=== PATIENT | female | born 1990 | race Caucasian/White ===

== ENCOUNTER 2016-10-20 19:00 | Emergency (ER) | payer OTHER | END 2016-10-20 19:27 | disposition home or self-care (01) | LOC: ER 19:00 | DX: S46.911A Strain of unspecified muscle, fascia and tendon at shoulder and upper arm level, right arm, initial encounter (principal); Z87.440 Personal history of urinary (tract) infections; Z79.899 Other long term (current) drug therapy; Z88.1 Allergy status to other antibiotic agents; Z88.8 Allergy status to other drugs, medicaments and biological substances; W10.9XXA Fall (on) (from) unspecified stairs and steps, initial encounter ==

== ENCOUNTER 2016-11-13 08:10 | Emergency (ER) | payer OTHER | END 2016-11-13 11:08 | disposition home or self-care (01) | LOC: ER 08:10 | DX: R07.89 Other chest pain (principal); R51 Headache; M54.6 Pain in thoracic spine; R11.0 Nausea; R06.02 Shortness of breath; R05 Cough; R10.9 Unspecified abdominal pain; E05.90 Thyrotoxicosis, unspecified without thyrotoxic crisis or storm; Z87.442 Personal history of urinary calculi; Z87.440 Personal history of urinary (tract) infections; Z79.899 Other long term (current) drug therapy; Z88.1 Allergy status to other antibiotic agents; Z88.8 Allergy status to other drugs, medicaments and biological substances | CPT/HCPCS: 36415; 96361; 96374; 96375; J1200; J1885; J2765 ==

== ENCOUNTER 2016-12-05 09:28 | Emergency (ER) | payer OTHER | END 2016-12-05 10:49 | disposition home or self-care (01) | LOC: ER 09:28 | DX: R51 Headache (principal); F41.9 Anxiety disorder, unspecified; E05.90 Thyrotoxicosis, unspecified without thyrotoxic crisis or storm; Z87.442 Personal history of urinary calculi; Z87.440 Personal history of urinary (tract) infections; Z79.899 Other long term (current) drug therapy; Z88.1 Allergy status to other antibiotic agents; Z88.8 Allergy status to other drugs, medicaments and biological substances | CPT/HCPCS: 96372; J1885 ==

== ENCOUNTER 2016-12-14 10:10 | Emergency (ER) | payer OTHER | END 2016-12-14 11:07 | disposition home or self-care (01) | LOC: ER 10:10 | DX: F33.1 Major depressive disorder, recurrent, moderate (principal); E05.90 Thyrotoxicosis, unspecified without thyrotoxic crisis or storm; E78.5 Hyperlipidemia, unspecified; K21.9 Gastro-esophageal reflux disease without esophagitis; F41.9 Anxiety disorder, unspecified; Z87.442 Personal history of urinary calculi; Z87.440 Personal history of urinary (tract) infections; Z79.899 Other long term (current) drug therapy; Z88.1 Allergy status to other antibiotic agents; Z88.8 Allergy status to other drugs, medicaments and biological substances ==

== ENCOUNTER 2016-12-18 17:47 | Emergency (ER) | payer OTHER | END 2016-12-18 19:38 | disposition home or self-care (01) | LOC: ER 17:47 | DX: O20.0 Threatened abortion (principal); F41.9 Anxiety disorder, unspecified; F32.9 Major depressive disorder, single episode, unspecified; E05.90 Thyrotoxicosis, unspecified without thyrotoxic crisis or storm; Z87.440 Personal history of urinary (tract) infections; Z87.442 Personal history of urinary calculi; Z79.899 Other long term (current) drug therapy; Z88.1 Allergy status to other antibiotic agents; Z88.8 Allergy status to other drugs, medicaments and biological substances | CPT/HCPCS: 36415 ==